=== PATIENT | male | born 1980 | race American Indian/Alaskan Native ===

== ENCOUNTER 2021-12-20 12:25 | Emergency (ER) | payer OTHER ==
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
[2021-12-20 17:50] VITALS: BP 146/87
== END 2021-12-20 17:07 | disposition home or self-care (01) ==
LOC: ED 12:25
DX: S02.2XXA Fracture of nasal bones, initial encounter for closed fracture (principal); I10 Essential (primary) hypertension; V89.2XXA Person injured in unspecified motor-vehicle accident, traffic, initial encounter; Y93.89 Activity, other specified; Y92.89 Other specified places as the place of occurrence of the external cause; Y99.8 Other external cause status
CPT/HCPCS: 70450; 70486; 99283